=== PATIENT | male | born 1985 | race Asian ===

== ENCOUNTER 2018-06-15 16:08 | Emergency (ER) | payer OTHER ==
[2018-06-15 16:20] VITALS: BP 150/95
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
== END 2018-06-15 18:09 | disposition home or self-care (01) ==
LOC: ED 16:08
DX: S16.1XXA Strain of muscle, fascia and tendon at neck level, initial encounter (principal); S39.012A Strain of muscle, fascia and tendon of lower back, initial encounter; Z91.018 Allergy to other foods; V89.2XXA Person injured in unspecified motor-vehicle accident, traffic, initial encounter; Y93.89 Activity, other specified; Y92.89 Other specified places as the place of occurrence of the external cause; Y99.8 Other external cause status
CPT/HCPCS: 99281